=== PATIENT | male | born 1985 | race Caucasian/White ===

== ENCOUNTER 2017-09-01 00:25 | Inpatient (IN) | payer MEDICAID ==
--- NOTE | 2017-08-28 | NUR ---
SLEEPING COMFORTABLY. RESPIRATION EVEN AND UNLABORED.
[~2017-09-01] VITALS: Ht 170.2 cm; Wt 77.1 kg
--- NOTE | 2017-09-01 00:25 | NUR ---
Patient BIBA BLS accompanied by [place] [employer], transferred to bed 5. RN evaluating patient at bedside.
[2017-09-01 00:32] VITALS: BP 124/65
--- NOTE | 2017-09-01 00:33 | NUR ---
Dr. Dominguez evaluating patient at bedside.
--- NOTE | 2017-09-01 00:35 | NUR ---
[employer] [employer] FOR SUICIDAL IDEATION. FEELS LIKE PEOPLE ARE CHASING HIM WITH GUNS TO KILL HIM. PT WALKING WITHOUT CLOTHES IN THE STREET. PT A/OX3. PT RAMBLING AT TIMES WITH SPEECH, BELIEVES PEOPLE ARE OUT TO HURT HIM. PT STATES HE HAS SCHIZOPHRENIA AND HAS NOT TAKEN HIS MEDICATIONS. HR EVEN/REGULAR. BREATH SOUNDS CLEAR BILATERALLY. PT DENIES PAIN AT THIS TIME. RICARDA GOLDBERG PLACED PT ON 5150 HOLD. PT IS IN HOSPITAL GOWN AND BELONGINGS HAVE BEEN SENT PICKED UP BY SECURITY. RN/EMT SITTER FOR 5150. MED HX: SCHIZOPHRENIA/ANXIETY
[2017-09-01] MEDS ORDERED: QUET300T1 PO (00:37)
[2017-09-01] MEDS ORDERED: QUET400T PO (00:37)
[2017-09-01] MEDS ORDERED: LORazepam 1 MG TAB PO ONE (00:40)
[2017-09-01 01:02] LABS: ANION GAP 11.7 (8-16); CARBON DIOXIDE 27.8 mmol/L (21-32); CHLORIDE 105 mmol/L (98-107); CREATININE 1.2 mg/dL (0.7-1.3); GFR ARICAN-AMERICAN 89 mL/min (>90); GLUCOSE 120 mg/dL (74-106); POTASSIUM 3.5 mmol/L (3.5-5.1); RED BLOOD CELL COUNT(AUTO) 5.14 MIL/uL (4.20-6.10); SODIUM SERUM 141 mmol/L (136-145); UREA NITROGEN, BLOOD 17 mg/dL (7-18); WHITE BLOOD COUNT (AUTO) 8.9 K/uL (4.8-10.8)
[2017-09-01 01:03] LABS: HEMATOCRIT 46.9 % (36-52); HEMOGLOBIN 15.8 g/dL (12.0-18.0); LYMPHOCYTES % (AUTO) 25.1 % (20.5-51.1); MEAN CORPUSCULAR HEMOGLOBIN 31 pg (27-31); MEAN CORPUSCULAR HGB CONC 34 g/dL (33-37); MEAN CORPUSCULAR VOLUME 91.4 fL (80-94); MONOCYTES % (AUTO) 8.6 % (1.7-9.3); NEUTROPHILS % (AUTO) 60.4 % (42.2-75.2); PLATELET COUNT (AUTO) 239 K/uL (140-450); RED CELL DISTRIBUTION WIDTH 12.5 % (11.6-13.7)
[2017-09-01 01:04] LABS: BASOPHILS # (AUTO) 0.4 K/uL (0.00-0.22); BASOPHILS % (AUTO) 4.1 % (0.0-2.0); EOSINOPHILS # (AUTO) 0.2 K/uL (0-0.4); EOSINOPHILS % (AUTO) 1.8 % (0.0-4.0); LYMPHOCYTES # (AUTO) 2.2 K/uL (2.0-11.5); MONOCYTES # (AUTO) 0.8 K/uL (0.8-1.0); NEUTROPHILS # (AUTO) 5.3 K/uL (1.8-7.7)
[2017-09-01 01:16] LABS: ALBUMIN 4.3 g/dL (3.4-5.0); ASPARTATE AMINOTRANSFERASE 38 U/L (15-37); TOTAL BILIRUBIN 0.9 mg/dL (0.0-1.0)
[2017-09-01 01:17] LABS: ACETAMINOPHEN < 0.5 ug/ml (10-30); SALICYLATE < 2.8 mg/dL (2.8-20.0)
--- NOTE | 2017-09-01 01:29 | NUR ---
2 CUPS OF WATER GIVEN, PT UNABLE TO GIVE UA AT THIS TIME
--- NOTE | 2017-09-01 01:30 | NUR ---
Pt report given to NIR. Transfer of care at this time.
--- NOTE | 2017-09-01 01:31 | NUR ---
[facility] SECURITY AT BEDSIDE, ALL BELONGS SENT WITH SECURITY.
--- NOTE | 2017-09-01 02:23 | NUR ---
PT AGITATED AND UNWILLING TO GIVE URINE SAMPLE AFTER 8 CUPS OF WATER.
--- NOTE | 2017-09-01 02:25 | NUR ---
# 16 FR Urinary catheter inserted utilizing sterile technique. Immediate return of 200 ml YELLOW urine noted. Urine sample collected and sent to lab. Pt tolerated procedure WELL.
[2017-09-01 02:42] LABS: BARBITURATE, URINE NEG. ng/ml (NEG <=200); BENZODIAZEPINE, URINE NEG. ng/mL (NEG <=200); COCAINE, URINE NEG. ng/mL (NEG <=300); PHENCYCLIDINE SCREEN,URINE NEG. ng/mL (NEG <=25)
[2017-09-01 02:54] LABS: CANNABINOID, URINE POS. ng/mL (NEG <=50); OPIATE, URINE NEG. ng/mL (NEG <=2000)
--- NOTE | 2017-09-01 03:22 | NUR ---
PT SOUND ASLEEP AT THIS TIME. NO ACUTE DISTRESS NOTED.
--- NOTE | 2017-09-01 03:56 | NUR ---
Patient appears to be resting comfortably in bed. Respirations even and unlabored.
--- NOTE | 2017-09-01 05:00 | NUR ---
Patient appears to be resting comfortably in bed. Respirations even and unlabored.
--- NOTE | 2017-09-01 06:00 | NUR ---
Patient appears to be resting comfortably in bed. Vital Signs within normal limits. Respirations even and unlabored.
--- NOTE | 2017-09-01 06:16 | NUR ---
DR BATISTA FROM TELEPSYCH CALLED AND WAS UPDATED ON PATIENT'S STATUS. DR BATISTA TO CALL AND TALK TO PT AND WILL RETURN CALL TO ME.
--- NOTE | 2017-09-01 06:19 | NUR ---
DR BATISTA TALKING WITH PATIENT VIA TELEPSYCH.
--- NOTE | 2017-09-01 06:32 | NUR ---
TALKED WITH DR BATISTA AND HIS RECOMMENDATION IS TO HAVE PT REMAIN ON 5150 HOLD, DR BATISTA WILL WRITE FOR MEDICATION SEROQUEL AND GEODON.
[2017-09-01] MEDS ORDERED: QUEtiapine FUMARATE 100 MG TAB PO STA (06:37)
--- NOTE | 2017-09-01 06:43 | NUR ---
CALLED CHILD CAREGIVER YARY REGARDING SEROQUEL DOSE NEEDED FOR PT. NOT AVAILABLE IN ER [facility].
[2017-09-01] MEDS ORDERED: QUEtiapine FUMARATE 100 MG TAB ONE (06:56)
--- NOTE | 2017-09-01 07:04 | NUR ---
PT AWAKE AND TOOK PO MEDICATION WITHOUT PROBLEMS. PT APPROPRIATE WITH STAFF AT THIS TIME.
--- NOTE | 2017-09-01 07:06 | NUR ---
[facility]CEIV[facility] REQUEST FOR ASSISTANCE WITH PLACEMENT.
--- NOTE | 2017-09-01 07:30 | NUR ---
PT UP IN BED EATING BREAKFAST TRAY
--- NOTE | 2017-09-01 07:58 | NUR ---
PT ASLEEP IN BED WITH EVEN AND UNLABORED BREATHING
--- NOTE | 2017-09-01 09:20 | NUR ---
Packet faxed to [facility] for review/placement.
--- NOTE | 2017-09-01 09:57 | NUR ---
Contacted [facility], no beds available at this time.
--- NOTE | 2017-09-01 10:17 | NUR ---
DR. MCCALL IS AWARE OF DUPLICATE ORDER OF SEROQUEL AND 2ND MED NOT GIVEN. PT IS SLEEPING AND RESTING IN BED WITH EVEN AN UNLABORED BREATHING AT THIS TIME.
--- NOTE | 2017-09-01 10:29 | NUR ---
Placement packet has been sent to [facility].
--- NOTE | 2017-09-01 11:10 | NUR ---
Placement packet sent to [facility] for review
[2017-09-01] MEDS ORDERED: HYDROcodone/APAP 7.5/325 MG 1 TAB PO PRN (11:50)
[2017-09-01] MEDS ORDERED: ACETAMINOPHEN 325 MG TAB PO PRN (11:50)
[2017-09-01] MEDS ORDERED: ONDANSETRON 4 MG/2 ML VIAL IM/IVP PRN (11:50)
--- NOTE | 2017-09-01 12:49 | NUR ---
Patient will be admitted to care of DR MESA. Admited to MED SURG. Will go to room 110B. Belongings list completed. Report to YU CORDOBA.
--- NOTE | 2017-09-01 12:55 | NUR ---
RECEIVED BEDSIDE REPORT FROM ER NURSE. PATIENT IS AWAKE, ALERT AND ORIENTEDX4. PATIENT IS CURRENTLY UNCOOPERATIVE AND CUSSING ABOUT NOT KNOWING THAT HE WAS BEING TRANSFERRED TO [facility] FLOOR. PATIENT CAME IN WHEELCHAIR. HE AMBULATED TO BED, GAIT IS STEADY. HE WAS UPSET ABOUT ME CHECKING HIS VITALS AND DOING MRSA SWAB. HE GRABBED THE SWABS AND DID IT HIMSELF. PATIENT REFUSED IV AND REFUSED TO ANSWER ANY QUESTIONS. HE STATES HE JUST WANTS TO EAT BECAUSE HE IS REALLY HUNGRY, ORDERED HIM FOOD. 1:1 SITTER AT BEDSIDE. WILL CONTINUE TO MONITOR THE PATIENT.
[2017-09-01 13:00] VITALS: BP 111/60
[2017-09-01 13:22] LABS: CHOL/HDL RATIO 3.2 (1-4.5); MAGNESIUM 2.4 mg/dL (1.8-2.4); PHOSPHORUS 3.6 mg/dL (2.5-4.9); THYROID STIMULATING HORMONE 3.43 uIU/mL (0.34-3.74)
[2017-09-01] MEDS: NACL 0.9% 1,000 ML IV SCH ×2 (13:46→20:56)
--- NOTE | 2017-09-01 14:30 | NUR ---
PATIENT IS SLEEPING. NO SIGNS OF DISTRESS ON ROOM AIR. 1:1 SITTER AT BEDSIDE. WILL CONTINUE TO MONITOR THE PATIENT.
[2017-09-01 16:00] VITALS: BP 122/78
--- NOTE | 2017-09-01 16:00 | NUR ---
PATIENT IS SLEEPING, NO SIGNS OF DISTRESS. 1:1 SITTER AT BEDSIDE. WILL CONTINUE TO MONITOR THE PATIENT.
--- NOTE | 2017-09-01 17:35 | NUR ---
TALKED TO DR CONTRERAS ABOUT THE PATIENT. HE SAID HE WILL BE BACK LATER.
--- NOTE | 2017-09-01 19:05 | NUR ---
DR CONTRERAS IN TO SEE THE PATIENT. PATIENT NOT ANSWERING ANY QUESTIONS. HE STATES ALL WE DO IS BOTHER HIM. DR CONTRERAS CANNOT CLEAR HIM AT THIS TIME D/T PATIENT BEING UNCOOPERATIVE. GAVE BEDSIDE REPORT TO COTTON HEADER NURSE. PATIENT ENDORSED IN STABLE CONDITION
--- NOTE | 2017-09-01 19:06 | NUR ---
RECD. RESTING IN BED, JUST WOKE UP BUT TURNED HIS BACK FROM NURSE WHEN ASKED HOW HE IS. UPSET BECAUSE HE IS BOTHERED FROM SLEEP. RESPIRATION EVEN AND UNLABORED. TATTOOS NOTED ON BILATERAL UPPER EXTREMITIES AND RIGHT LEG. CONTINUED SLEEPING. NO APPEARANCE OF PAIN NOTED 0/10. WILL CONTINUE TO MONITOR BEING THE NURSE SITTER FOR THIS SHIFT.
--- NOTE | 2017-09-01 19:45 | NUR ---
Patient's Plan of Care was discussed and reviewed with ADULT MANAGER: ROB
[2017-09-01] MEDS ORDERED: QUEtiapine FUMARATE 100 MG TAB PO SCH ×2 (21:00)
--- NOTE | 2017-09-01 21:37 | NUR ---
WAKEN UP TO TAKE NIGHT MEDICATION. A/OX4. COOPERATIVE AT THIS TIME. WANTS IV INSERTION TOMORROW. DENIES HEARING VOICES OR SEEING THINGS BUT ADMITTED FEELING VERY DEPRESSED.
--- NOTE | 2017-09-01 22:30 | NUR ---
SOUNDLY ASLEEP IN BED, SNORING.
[2017-09-02] VITALS: BP 120/80
--- NOTE | 2017-09-02 03:26 | NUR ---
No update from contacted facilities at this time. will continue to look for placement throughout shift. will endorse to morning shift to continue looking for placement as well.
--- NOTE | 2017-09-02 05:30 | NUR ---
GETS UPSET WHEN WAKEN UP BY SLEEVE SEPARATOR BUT ALLOW TECH TO DRAW BLOOD FOR AM LAB TEST.
[2017-09-02] MEDS: NACL 0.9% 1,000 ML IV SCH ×2 (06:02→19:02)
[2017-09-02 06:21] LABS: T4 (THYROXINE) 6.8 ug/dL (4.5-12.0)
--- NOTE | 2017-09-02 06:30 | NUR ---
ABLE TO SLEPT WELL. CONDITION REMAIN STABLE. WILL ENDORSE TO AM NURSE FOR CONTINUITY OF CARE.
[2017-09-02 06:31] LABS: ANION GAP 7.5 (8-16); CARBON DIOXIDE 30.4 mmol/L (21-32); POTASSIUM 3.9 mmol/L (3.5-5.1)
--- NOTE | 2017-09-02 07:05 | NUR ---
ENDORSED TO AM NURSE FOR CONTINUITY OF CARE.
--- NOTE | 2017-09-02 07:10 | NUR ---
RECEIVED PT FROM HOSPITALITY SERVICES MANAGER NURSEBRIAN, PT IS ASLEEP LYING ON THE BED WITH SIDE RAILS ARE UP, SUICIDE PRECAUTION ENFORCED, 1:1 SITTER ON THE BEDSIDE. RESPIRATIONS EVEN. PT HAS NO IV LINE IN PLACE BECAUSE ACCORDING TO HOSPITALITY SERVICES MANAGER NURSE, PT REFUSED IV LINE INSERTION. NO SIGN OF DISTRESS NOTED AND WILL CONTINUE TO MONITOR.
[2017-09-02 07:38] LABS: HEMATOCRIT 46.6 % (36-52); HEMOGLOBIN 15.8 g/dL (12.0-18.0); MEAN CORPUSCULAR HEMOGLOBIN 31 pg (27-31); MEAN CORPUSCULAR HGB CONC 34 g/dL (33-37); MEAN CORPUSCULAR VOLUME 92.4 fL (80-94); NEUTROPHILS % (AUTO) 41.7 % (42.2-75.2); PLATELET COUNT (AUTO) 200 K/uL (140-450); RED BLOOD CELL COUNT(AUTO) 5.04 MIL/uL (4.20-6.10); RED CELL DISTRIBUTION WIDTH 12.7 % (11.6-13.7); WHITE BLOOD COUNT (AUTO) 6.3 K/uL (4.8-10.8)
[2017-09-02 07:39] LABS: BASOPHILS % (AUTO) 1.7 % (0.0-2.0); EOSINOPHILS % (AUTO) 4.6 % (0.0-4.0); LYMPHOCYTES % (AUTO) 44.7 % (20.5-51.1); MONOCYTES % (AUTO) 7.3 % (1.7-9.3)
[2017-09-02 08:00] VITALS: BP 133/82
--- NOTE | 2017-09-02 08:05 | NUR ---
PT IS AWAKE AND SEATED ON THE BED AND VITAL SIGNS TAKEN AND IS STABLE. NO SIGN OF DISTRESS NOTED AND WILL CONTINUE TO MONITOR. 1:1 SITTER ON THE BEDSIDE.
--- NOTE | 2017-09-02 08:20 | NUR ---
PATIENT HAS BEEN SCREENED AND CATEGORIZED LOW NUTRITION RISK. PATIENT WILL BE SEEN WITHIN 7 DAYS OF ADMISSION. 09/08/[address]
[2017-09-02] MEDS ORDERED: OXcarbazepine 150 MG TAB PO SCH (09:00)
--- NOTE | 2017-09-02 11:00 | NUR ---
INFORMED DR. VERDUGO ABOUT THE PT'S REFUSAL FOR IV LINE INSERTION. ACKNOWLEDGED AND SAID THAT IT IS FINE.
--- NOTE | 2017-09-02 11:53 | NUR ---
ACKNOWLEDGED AN ORDER FOR A SHOWER FOR THE PT.
[2017-09-02] MEDS: QUEtiapine FUMARATE 100 MG TAB PO SCH ×2 (12:06→20:33)
--- NOTE | 2017-09-02 12:08 | NUR ---
PT IS AWAKE AND HAVING HIS LUNCH.. MEDICATION GIVEN AND PT TOLERATED IT. 1:1 SITTER ON THE BEDSIDE AND PT VERBALIZED THAT HE FEELS GOOD BECAUSE HE WAS ABLE TO TAKE A SHOWER. NO SIGN OF DISTRESS NOTED ON THE PT AND WILL CONTINUE TO MONITOR.
--- NOTE | 2017-09-02 12:32 | NUR ---
ECHO IS BEING DONE TO THE PT NOW. PT IS AWAKE, LYING ON THE BED AND TALKING APPROPRIATELY TO THE ROLL SKINNER. NO SIGN OF DISTRESS NOTED ON THE PT. WILL CONTINUE TO MONITOR.
--- NOTE | 2017-09-02 12:48 | NUR ---
ECHO WAS FINISHED AND DONE NOW.
--- NOTE | 2017-09-02 13:01 | NUR ---
PT IS ASLEEP LYING ON THE BED, WITH SIDE RAILS UP AND 1:1 SITTER ON THE BEDSIDE. RESPIRATIONS EVEN AND NO SIGN OF DISTRESS NOTED. WILL CONTINUE TO MONITOR.
[2017-09-02 16:00] VITALS: BP 112/74
--- NOTE | 2017-09-02 16:40 | NUR ---
PT IS AWAKE AND LYING ON THE BED, VITAL SIGNS TAKEN AND IS STABLE. NO SIGN OF DISTRESS NOTED. 1:1 SITTER ON THE BEDSIDE. WILL CONTINUE TO MONITOR.
--- NOTE | 2017-09-02 17:00 | NUR ---
DR. GARCIA CAME TO THE PT'S ROOM AND ASSESSED THE PT. PT RESPONDING APPROPRIATELY TO THE MD. PT STILL MEET 5150 CRITERIA AND IS OK FOR DISCHARGED FOR A PSYCH FACILITY ONCE MEDICALLY CLEARED.
--- NOTE | 2017-09-02 19:20 | NUR ---
ENDORSED PT TO LABORATORY COORDINATOR NURSELAURA FOR CONTINUITY OF CARE. PT IS SLEEPING AND 1:1 SITTER ON THE BEDSIDE. AND IS STABLE AT THIS TIME.
--- NOTE | 2017-09-02 19:22 | NUR ---
RECEIVED PT FROM KALIN NICHOLAS REPORT GIVEN AT BED SIDE , PT IS 5150 HOLD , PT SLEEPING AT THIS TIME NOT SIGNS OF DANGEROUS ALL PAPER WORK PROTOCOL UPDATED INITIAL ASSESSMENT DONE
--- NOTE | 2017-09-02 19:23 | NUR ---
ROOM SAFE FOR PAT 5150 HOLD SITTER AT BED SIDE
[2017-09-02 20:00] VITALS: BP 107/74
--- NOTE | 2017-09-02 21:00 | NUR ---
PT AWAKE TAKEN HIS ORAL MEDIC WELL NOT DISTRESS NOTED HE DENIES ANY HALLUCINATIONS AT THIS TIME, 1:1 SITTER PT GETTING SLEEP
--- NOTE | 2017-09-02 22:11 | NUR ---
PT SLEEPING NOT SIGN OF DISTRESS NOTED 1:1 SITTER NOT SIGNS OF DISTRESS NOTED
--- NOTE | 2017-09-02 23:31 | NUR ---
PT COOPERATIVE DENIES ANY PIN , AT THIS TIME, DENIES ANY HALLUCINATIONS
--- NOTE | 2017-09-02 23:36 | NUR ---
PT DENIED ANY PAIN, GETTING SLEEP SITTER 1:1 NOT SIGNS OF DISTRESS NOTED
[2017-09-03] VITALS: BP 113/68
--- NOTE | 2017-09-03 00:26 | NUR ---
PT AMBULATES TO THE RESTROOM VOIDING WELL URINE SAMPLE TAKEN AND SENT TO LAB PT COME BACK TO SLEEP DENIES ANY PAIN OR DISOMFORT AT THIS TIME
[2017-09-03 01:05] LABS: APPEARANCE,URINE CLEAR (CLEAR); BILIRUBIN,URINE NEGATIVE (NEGATIVE); BLOOD, URINE NEGATIVE (NEGATIVE); COLOR,URINE YELLOW (YELLOW); LEUKOCYTE ESTERASE ,URINE NEGATIVE (NEGATIVE); NITRITE, URINE NEGATIVE (NEGATIVE); UGLUCOSE NEGATIVE (NEGATIVE)
--- NOTE | 2017-09-03 03:00 | NUR ---
PT HAS BEEN SLEEPING, NOT SIGNS OF DISTRESS NOTED PT DENIES ANY HALLUCINATION AT THIS TIME PT 6558 1:1 ANUJ
--- NOTE | 2017-09-03 05:31 | NUR ---
PT HAS BEEN COOPERATIVE WHEN HE IS AWAKE PT 9652 1:1 SITTER ON CLOSE MONITORING DENIES ANY SUICIDAL IDEATION AT THIS TIME NOT HALLUCINATION SLEEPING WELL AND PT HAS BEEN VOIDING WELL TOO
[2017-09-03 06:05] LABS: BASOPHILS # (AUTO) 0.1 K/uL (0.00-0.22); BASOPHILS % (AUTO) 0.7 % (0.0-2.0); EOSINOPHILS # (AUTO) 0.3 K/uL (0-0.4); HEMATOCRIT 46.3 % (36-52); HEMOGLOBIN 15.7 g/dL (12.0-18.0); LYMPHOCYTES # (AUTO) 3.6 K/uL (2.0-11.5); LYMPHOCYTES % (AUTO) 49.4 % (20.5-51.1); MEAN CORPUSCULAR HEMOGLOBIN 31 pg (27-31); MEAN CORPUSCULAR HGB CONC 34 g/dL (33-37); MEAN CORPUSCULAR VOLUME 92.2 fL (80-94); MONOCYTES # (AUTO) 0.5 K/uL (0.8-1.0); NEUTROPHILS # (AUTO) 2.9 K/uL (1.8-7.7); NEUTROPHILS % (AUTO) 38.9 % (42.2-75.2); PLATELET COUNT (AUTO) 208 K/uL (140-450); RED BLOOD CELL COUNT(AUTO) 5.02 MIL/uL (4.20-6.10); RED CELL DISTRIBUTION WIDTH 13.6 % (11.6-13.7); WHITE BLOOD COUNT (AUTO) 7.3 K/uL (4.8-10.8)
--- NOTE | 2017-09-03 06:17 | NUR ---
PT AWAKE COOPERATIVE TO FOLLOW DR ORDER NOT SIGNS OF DISTRESS NOTED, PT WILL BE ENDORSED TO DAY SHIFT FOR CONTINUITY OF CARE
[2017-09-03 06:41] LABS: ANION GAP 7.7 (8-16); CARBON DIOXIDE 26.8 mmol/L (21-32); POTASSIUM 3.5 mmol/L (3.5-5.1)
--- NOTE | 2017-09-03 07:20 | NUR ---
RECEIVED REPORT FROM GENERAL INTERN NURSE. PATIENT LYING DOWN IN BED SLEEPING, AROUSABLE BY VOICE. NO DISTRESS NOTED. DENIES ANY PAIN. AAOX3, CALM, COOPERATIVE, SKIN COLOR APPROPRIATE TO ETHNICITY, WARM TO TOUCH. SKIN IS INTACT. UNCLEAR ON WHETHER PATIENT CURRENTLY HAS THOUGHTS, WHEN ASKED, SAYS "I DON'T KNOW, I JUST WOKE UP". LUNGS CTA ON ALL LOBES. ABDOMEN SOFT, NON-DISTENDED. NO IV SITE IN PLACE PATIENT REFUSES. REVIEWED PLAN OF CARE WITH PATIENT. PATIENT VERBALIZED UNDERSTANDING. AWAITING FOR PSYCH FACILITY PLACEMENT. SAFETY MEASURES IN PLACE, 1:1 SITTER AT BEDSIDE. WILL CONTINUE TO MONITOR.
[2017-09-03 07:43] VITALS: BP 111/74
[2017-09-03] MEDS: QUEtiapine FUMARATE 100 MG TAB PO SCH ×2 (09:01→21:10)
--- NOTE | 2017-09-03 09:02 | NUR ---
PATIENT LYING DOWN IN BED SLEEPING, AROUSABLE BY VOICE. NO DISTRESS NOTED. DENIES ANY PAIN. SCHEDULED MEDICATIONS DUE GIVEN. SAFETY MEASURES IN PLACE, 1:1 SITTER AT BEDSIDE. WILL CONTINUE TO MONITOR.
--- NOTE | 2017-09-03 11:15 | NUR ---
PATIENT LYING IN BED SLEEPING, LYING DOWN. NO DISTRESS NOTED. DENIES ANY PAIN. ABLE TO AMBULATE TO BATHROOM AND TO BED WITH STEADY GAIT. CONDITION UNCHANGED. 1:1 SITTER AT BEDSIDE. WILL CONTINUE TO MONITOR.
--- NOTE | 2017-09-03 12:08 | NUR ---
[facility] aware patient is still in unit will continue to look for placement throughout the shift. will update unit when new information has been received.
--- NOTE | 2017-09-03 14:49 | NUR ---
PATIENT LYING DOWN, IN BED SLEEPING, AROUSABLE BY VOICE. NO DISTRESS NOTED. DENIES ANY PAIN. CONDITION UNCHANGED. SAFETY MEASURES IN PLACE, 1:1 SITTER AT BEDSIDE. WILL CONTINUE TO MONITOR.
[2017-09-03] MEDS: LORazepam 1 MG TAB PO PRN (15:55)
[2017-09-03 16:00] VITALS: BP 115/82
--- NOTE | 2017-09-03 16:00 | NUR ---
PATIENT AWAKE WALKING AROUND BEDSIDE, IN AGITATED MOOD DUE TO BEING HUNGRY AND NO SNACKS ALLOWED FOR 5150 PATIENT'S. ATIVAN GIVEN PER MD ORDERS TO HELP WITH ANXIETY. SAFETY MEASURES AT BEDSIDE, 1:1 SITTER AT BEDSIDE. WILL CONTINUE TO MONITOR.
--- NOTE | 2017-09-03 18:00 | NUR ---
PATIENT SITTING IN BED WITH DINNER TRAY IN FRONT. NO DISTRESS NOTED. DENIES ANY PAIN. CONDITION UNCHANGED. WILL CONTINUE TO MONITOR.
--- NOTE | 2017-09-03 19:15 | NUR ---
GAVE REPORT TO PLUMBING AND HEATING MECHANIC NURSE FOR CONTINUITY OF CARE. PATIENT IN STABLE CONDITION.
--- NOTE | 2017-09-03 19:16 | NUR ---
RECEIVED BEDSIDE REPORT FROM DAY SHIFT NURSE EDDIE RN, PT STABLE, NO DISTRESS NOTED, PT HAS NO IV ACCESS, PT ON ROOM AIR, NO SOB NOTED, PT SLEEPING, 1:1 SITTER AT BEDSIDE, INITIAL ASSESSMENT DONE, ALL SAFETY PRECAUTION MET, WILL CONTINUE TO MONITOR.
--- NOTE | 2017-09-03 21:10 | NUR ---
DUE MEDICATION ADMINISTERED , PT TOLERATED WELL, NO DISTRESS NOTED, CALL LIGHT WITHIN REACH, WILL CONTINUE TO MONITOR. Addendum: 09/03/17 at 2236 by Debbie Guajardo RN 1:1 SITTER AT BEDSIDE
--- NOTE | 2017-09-03 23:52 | NUR ---
CHECKED ON PT, PT SLEEPING, NO DISTRESS NOTED, 1:1 SITTER AT BEDSIDE, WILL CONTINUE TO MONITOR.
[2017-09-03 23:56] VITALS: BP 119/69
--- NOTE | 2017-09-04 02:11 | NUR ---
PT SLEEPING, NO DISTRESS NOTED, 1:1 SITTER AT BEDSIDE, WILL CONTINUE TO MONITOR.
--- NOTE | 2017-09-04 04:38 | NUR ---
PT SLEEPING, NO DISTRESS NOTED, 1:1 SITTER AT BEDSIDE, WILL CONTINUE TO MONITOR.
--- NOTE | 2017-09-04 07:00 | NUR ---
ASSUMED CONTINUITY OF CARE. NO SIGNS AND SYMPTOMS OF ACUTE DISTRESS NOTED. INITIAL ASSESSMENT DONE. CALM, QUIET AND COOPERATIVE. NO SUICIDAL THOUGHTS NOTICED. KEEP SURROUNDINGS SAFE. CLOSELY MONITRED 1:1.
--- NOTE | 2017-09-04 07:05 | NUR ---
Patient's Plan of Care was discussed and reviewed with MOTOR AND CONTROLS TESTER: Divina AGUILERA
--- NOTE | 2017-09-04 07:06 | NUR ---
ENDORSED PT TO DAY SHIFT NURSE CLOVER ZAMAN, PT IN STABLE CONDITION , NO DISTRESS NOTED, 1:1 SITTER AT BEDSIDE.
[2017-09-04 07:47] LABS: BASOPHILS # (AUTO) 0.1 K/uL (0.00-0.22); BASOPHILS % (AUTO) 0.8 % (0.0-2.0); EOSINOPHILS # (AUTO) 0.2 K/uL (0-0.4); EOSINOPHILS % (AUTO) 3.5 % (0.0-4.0); HEMATOCRIT 47.5 % (36-52); HEMOGLOBIN 16.4 g/dL (12.0-18.0); LYMPHOCYTES # (AUTO) 2.5 K/uL (2.0-11.5); MEAN CORPUSCULAR HEMOGLOBIN 32 pg (27-31); MEAN CORPUSCULAR HGB CONC 34 g/dL (33-37); MEAN CORPUSCULAR VOLUME 91.6 fL (80-94); MONOCYTES # (AUTO) 0.4 K/uL (0.8-1.0); MONOCYTES % (AUTO) 5.4 % (1.7-9.3); NEUTROPHILS # (AUTO) 3.8 K/uL (1.8-7.7); NEUTROPHILS % (AUTO) 54.3 % (42.2-75.2); PLATELET COUNT (AUTO) 211 K/uL (140-450); RED BLOOD CELL COUNT(AUTO) 5.18 MIL/uL (4.20-6.10); RED CELL DISTRIBUTION WIDTH 13.5 % (11.6-13.7); WHITE BLOOD COUNT (AUTO) 6.9 K/uL (4.8-10.8)
[2017-09-04 08:00] VITALS: BP 111/69
[2017-09-04 08:06] LABS: ANION GAP 10.2 (8-16); CARBON DIOXIDE 27.9 mmol/L (21-32); POTASSIUM 4.1 mmol/L (3.5-5.1)
[2017-09-04] MEDS: QUEtiapine FUMARATE 100 MG TAB PO SCH ×2 (08:42→21:11)
--- NOTE | 2017-09-04 08:42 | NUR ---
SUZY DUMONT CAME AND SPOKE TO PT. AT BEDSIDE. PT. CALM AND COOPERATIVE.
--- NOTE | 2017-09-04 11:00 | NUR ---
SLEEPING COMFORTABLY. NO DIFFICULTY BREATHING OBSERVED. CONTINUE MONITORING 1:1.
[2017-09-04 12:00] VITALS: BP 103/70
--- NOTE | 2017-09-04 15:00 | NUR ---
[facility] IS AWARE OF PATIENT AND ASSISTING WITH PLACEMENT. THERE ARE CURRENTLY NO BEDS AVAILABLE AT THIS TIME.
--- NOTE | 2017-09-04 16:02 | NUR ---
WENT TO BATHROOM. TOLERATED WELL. HAD STEADY GAIT AND BALANCE. NO C/O PAIN. CONTINUE TO MONITOR 1:1 FOR SUICIDAL PREVENTION.
[2017-09-04] MEDS: LORazepam 1 MG TAB PO PRN (16:27)
--- NOTE | 2017-09-04 19:06 | NUR ---
BEDSIDE REPORT GIVEN TO ELEONORA PATE. IN STABLE CONDITION.
--- NOTE | 2017-09-04 19:07 | NUR ---
RECEIVED BEDSIDE REPORT FROM DAY SHIFT NURSE CLOVER ZAMAN, PT IN STABLE CONDITION, NO DISTRESS NOTED, NO IV ACCESS, PT ON ROOM AIR, NO SOB, 1:1 SITTER AT BEDSIDE, INITIAL ASSESSMENT DONE, ALL SAFETY PRECAUTION MET, WILL CONTINUE TO MONITOR.
--- NOTE | 2017-09-04 21:11 | NUR ---
DUE MEDICATION ADMINISTERED, PT TOLERATED WELL, NO DISTRESS NOTED, CALL LIGHT WITHIN REACH, WILL CONTINUE TO MONITOR.
--- NOTE | 2017-09-04 23:52 | NUR ---
CHECKED ON PT, PT SLEEPING, NO DISTRESS NOTED, CHECKED PT V/S, WNL, 1:1 SITTER AT BEDSIDE, WILL CONTINUE TO MONITOR.
[2017-09-04 23:58] VITALS: BP 106/57
--- NOTE | 2017-09-05 02:11 | NUR ---
PT SLEEPING, NO DISTRESS NOTED 1:1 SITTER AT BEDSIDE, WILL CONTINUE TO MONITOR.
--- NOTE | 2017-09-05 03:58 | NUR ---
PT SLEEPING, NO DISTRESS NOTED, 1:1 SITTER AT BEDSIDE, WILL CONTINUE TO MONITOR.
[2017-09-05 06:34] LABS: BASOPHILS % (AUTO) 0.3 % (0.0-2.0); EOSINOPHILS # (AUTO) 0.2 K/uL (0-0.4); EOSINOPHILS % (AUTO) 2.1 % (0.0-4.0); HEMATOCRIT 46.4 % (36-52); LYMPHOCYTES # (AUTO) 2.8 K/uL (2.0-11.5); LYMPHOCYTES % (AUTO) 27.9 % (20.5-51.1); MEAN CORPUSCULAR HEMOGLOBIN 31 pg (27-31); MEAN CORPUSCULAR HGB CONC 34 g/dL (33-37); MEAN CORPUSCULAR VOLUME 91.3 fL (80-94); MONOCYTES # (AUTO) 0.6 K/uL (0.8-1.0); MONOCYTES % (AUTO) 5.8 % (1.7-9.3); NEUTROPHILS # (AUTO) 6.5 K/uL (1.8-7.7); NEUTROPHILS % (AUTO) 63.9 % (42.2-75.2); PLATELET COUNT (AUTO) 194 K/uL (140-450); RED BLOOD CELL COUNT(AUTO) 5.08 MIL/uL (4.20-6.10); RED CELL DISTRIBUTION WIDTH 13.2 % (11.6-13.7); WHITE BLOOD COUNT (AUTO) 10.1 K/uL (4.8-10.8)
--- NOTE | 2017-09-05 06:42 | NUR ---
CHECKED ON PT, PT SLEEPING, NO DISTRESS NOTED, 1:1 SITTER AT BEDSIDE, WILL CONTINUE TO MONITOR.
[2017-09-05 06:49] LABS: CARBON DIOXIDE 28.3 mmol/L (21-32); POTASSIUM 4.3 mmol/L (3.5-5.1)
--- NOTE | 2017-09-05 07:00 | NUR ---
ASSUMED CONTINUITY OF CARE. NO SIGNS AND SYMPTOMS OF ACUTE DISTRESS NOTICED. INITIAL ASSESSMENT DONE. SLEEPING WELL AT THIS TIME. KEEP SURROUNDINGS SAFE. CLOSELY MONITORED 1:1 FOR SUICIDAL PREVENTION.
--- NOTE | 2017-09-05 07:02 | NUR ---
ENDORSED PT TO DAY SHIFT NURSE CLOVER ZAMAN, PT IN STABLE CONDITION, 1:1 SITTER AT BEDSIDE.
--- NOTE | 2017-09-05 07:04 | NUR ---
Patient's Plan of Care was discussed and reviewed with LENS CLEANER: CLOVER FERNANDEZ
[2017-09-05 08:00] VITALS: BP 101/55
[2017-09-05] MEDS: QUEtiapine FUMARATE 100 MG TAB PO SCH ×2 (08:13→21:13)
--- NOTE | 2017-09-05 09:52 | NUR ---
SUZY DUMONT CAME AND SPOKE TO PT. AT BEDSIDE. CALM AND COOPERATIVE.
[2017-09-05 12:00] VITALS: BP 107/65
--- NOTE | 2017-09-05 12:00 | NUR ---
VITALS SIGNS STABLE. NO C/O PAIN. WILL MONITOR CLOSELY 1:1.
[2017-09-05] MEDS: LORazepam 1 MG TAB PO PRN (16:12)
--- NOTE | 2017-09-05 19:04 | NUR ---
BEDSIDE REPORT GIVEN TO ELEONORA PATE. IN STABLE CONDITION.
--- NOTE | 2017-09-05 19:05 | NUR ---
RECEIVED BEDSIDE REPORT FROM DAY SHIFT NURSE CLOVER ZAMAN, PT STABLE, NO DISTRESS NOTED, PT HAS NO IV ACCESS, PT ON ROOM AIR, NO SOB, 1:1 SITTER AT BEDSIDE, PT ABLE TO SELF AMBULATE TO AND FROM RESTROOM, INITIAL ASSESSMENT DONE, ALL SAFETY PRECAUTION MET, WILL CONTINUE TO MONITOR.
--- NOTE | 2017-09-05 21:13 | NUR ---
DUE MEDICATION ADMINISTERED, PT TOLERATED WELL, NO DISTRESS NOTED, 1;1 SITTER AT BEDSIDE, WILL CONTINUE TO MONITOR.
--- NOTE | 2017-09-05 23:22 | NUR ---
CHECKED ON PT, PT SLEEPING, NO DISTRESS NOTED, V/S TAKEN, WNL, 1:1 SITTER AT BEDSIDE, WILL CONTINUE TO MONITOR.
[2017-09-05 23:55] VITALS: BP 97/63
--- NOTE | 2017-09-06 03:17 | NUR ---
No placements found at this time ,giancarlo continue to make calls for placement
--- NOTE | 2017-09-06 04:45 | NUR ---
PT SLEEPING, NO DISTRESS NOTED, 1:1 SITTER AT BEDSIDE, WILL CONTINUE TO MONITOR.
[2017-09-06 06:59] LABS: BASOPHILS % (AUTO) 0.3 % (0.0-2.0); EOSINOPHILS # (AUTO) 0.2 K/uL (0-0.4); EOSINOPHILS % (AUTO) 1.7 % (0.0-4.0); HEMATOCRIT 46.4 % (36-52); HEMOGLOBIN 15.9 g/dL (12.0-18.0); LYMPHOCYTES # (AUTO) 2.4 K/uL (2.0-11.5); LYMPHOCYTES % (AUTO) 20.3 % (20.5-51.1); MEAN CORPUSCULAR HEMOGLOBIN 31 pg (27-31); MEAN CORPUSCULAR HGB CONC 34 g/dL (33-37); MEAN CORPUSCULAR VOLUME 90.8 fL (80-94); MONOCYTES # (AUTO) 0.8 K/uL (0.8-1.0); MONOCYTES % (AUTO) 6.7 % (1.7-9.3); NEUTROPHILS # (AUTO) 8.4 K/uL (1.8-7.7); PLATELET COUNT (AUTO) 188 K/uL (140-450); RED BLOOD CELL COUNT(AUTO) 5.11 MIL/uL (4.20-6.10); WHITE BLOOD COUNT (AUTO) 11.8 K/uL (4.8-10.8)
--- NOTE | 2017-09-06 07:20 | NUR ---
ENDORSED PT TO DAY SHIFT NURSE MUNA RN, PT IN STABLE CONDITION, NO DISTRESS NOTED, 1:1 SITTER AT BEDSIDE.
--- NOTE | 2017-09-06 07:25 | NUR ---
REPORT RECEIVED FROM SENIOR NATIONAL ACCOUNT MANAGER, PT SLEEPING QUIETLY IN NAD, RESP EVEN UNLABORED, SKIN WARM DRY COLOR WNL, PLAN OF CARE REVIEWED, NO IMMEDIATE NEEDS IDENTIFIED AT THIS TIME, 1:1 SITTER AT BEDSIDE, WILL CONTINUE TO MONITOR.
[2017-09-06 07:50] LABS: ANION GAP 15.6 (8-16); CARBON DIOXIDE 24.2 mmol/L (21-32); CREATININE 1.1 mg/dL (0.7-1.3); POTASSIUM 3.8 mmol/L (3.5-5.1)
[2017-09-06 08:00] VITALS: BP 102/57
[2017-09-06] MEDS: LORazepam 1 MG TAB PO PRN (08:55)
[2017-09-06] MEDS: QUEtiapine FUMARATE 100 MG TAB PO SCH (08:56)
--- NOTE | 2017-09-06 08:59 | NUR ---
AM MEDS AND ATIVAN GIVEN FOR ANXIETY, PT STATES HE FEELS ANXIOUS, SPEAKS WITH LOUD VOICE AND DEMANDING, WENT RIGHT BACK TO SLEEP AFTER MEDICATION, PT REMAINS WITH 1:1 SITTER, WILL CONTINUE TO MONITOR.
--- NOTE | 2017-09-06 10:35 | NUR ---
PT MOVED TO 109B, WALKS WITH STEADY GAIT.
--- NOTE | 2017-09-06 11:12 | NUR ---
[facility] aware patient is still in unit. will continue to look for placement throughout shift. will update unit when new information has been received.
--- NOTE | 2017-09-06 15:08 | NUR ---
DR MUNROE AT BEDSIDE FOR EVALUATION
[2017-09-06 16:00] VITALS: BP 108/60
--- NOTE | 2017-09-06 16:50 | NUR ---
PT MEDICATED WITH TYLENOL FOR PATEL, BP 169/101, WILL GIVEN PRN CLONIDINE Addendum: 09/06/17 at 1753 by Joanna Briones RN WRONG PATIENT, PLEASE DISREGARD ABOVE NOTE
--- NOTE | 2017-09-06 16:55 | NUR ---
PT UP AMBULATING IN ROOM, ANXIOUS TO GO HOME, PT WAS CLEARED FROM 5150 BY FEDER[facility] MADERA DISCHARGE ORDER.
--- NOTE | 2017-09-06 18:20 | NUR ---
DISCHARGE INSTRUCTION GIVEN AND EXPLAINED TO PT, PT VERBALIZED FULL UNDERSTANDING, OUT PT PSYCH FOLLOW UP RESOURCES GIVEN TO PT BY DR MUNROE, PT HAS HANDOUT IN HIS HAND, PT, BELONGINGS DELIVERED TO PT BY SECURITY, BUS PASS PROVIDED BY NURSING CORE DRILLER, PT AMBULATES WELL WITH STEADY GAIT, ESCORTED OUT TO FRONT LOBBY.
== END 2017-09-06 18:20 | disposition home or self-care (01) | DRG 812 ==
LOC: MED 00:25 → MTU 11:54
PROVIDERS: ADMIT Family Medicine; ATTEND Family Medicine
DX: T43.621A Poisoning by amphetamines, accidental (unintentional), initial encounter (principal); G92 Toxic encephalopathy; E87.1 Hypo-osmolality and hyponatremia; R45.851 Suicidal ideations; F20.9 Schizophrenia, unspecified; F41.9 Anxiety disorder, unspecified; F12.10 Cannabis abuse, uncomplicated; F15.10 Other stimulant abuse, uncomplicated; F17.210 Nicotine dependence, cigarettes, uncomplicated; F32.9 Major depressive disorder, single episode, unspecified; E78.5 Hyperlipidemia, unspecified; R74.0 Nonspecific elevation of levels of transaminase and lactic acid dehydrogenase [LDH]; F41.0 Panic disorder [episodic paroxysmal anxiety]; Y92.89 Other specified places as the place of occurrence of the external cause; Z91.14 Patient's other noncompliance with medication regimen; Z71.51 Drug abuse counseling and surveillance of drug abuser; Z79.899 Other long term (current) drug therapy
CPT/HCPCS: 36415; 71045; 80048; 80053; 80305; 81003; 83036; 83690; 83735; 83880; 84100; 84436; 84443; 84479; 85025; 85610; 87081; 93005; 99285; G0480; G0482; Q0092

== ENCOUNTER 2018-05-04 03:10 | Emergency (ER) | payer MEDICAID ==
[~2018-05-04] VITALS: Ht 170.2 cm; Wt 90.7 kg
[~2018-05-04 03:10] MED LIST: QUET300T1 PO; QUET400T PO
[2018-05-04 03:15] VITALS: BP 137/90
--- NOTE | 2018-05-04 03:15 | NUR ---
TO BED # 2 AMBULATORY , REPORT GIVEN TO KEISHA NICHOLAS
[2018-05-04] MEDS ORDERED: KETOROLAC 60 MG/2 ML VIAL IM ONE (03:20)
--- NOTE | 2018-05-04 03:34 | NUR ---
33/M PRESENTS TO ED, C/O 09/17 SHARP CONSTANT L UPPER MOLAR PAIN, X3 HRS. PT DENIES TRAUMA/INJURY, CP, SOB, N/V, FEVER. AOX4, RR EVEN AND UNLABORED. DENIES MED HX, RX OR OTC.
--- NOTE | 2018-05-04 03:37 | NUR ---
DR QUIÑONES AT BEDSIDE
[2018-05-04 03:48] VITALS: BP 136/90
== END 2018-05-04 03:48 | disposition home or self-care (01) ==
LOC: MED 03:10
DX: K08.89 Other specified disorders of teeth and supporting structures (principal); Z79.899 Other long term (current) drug therapy
CPT/HCPCS: 96372; 99283; J1885

== ENCOUNTER 2022-12-16 03:12 | Emergency (ER) | payer MEDICAID, OTHER ==
[~2022-12-16] VITALS: Ht 167.6 cm; Wt 81.6 kg
[2022-12-16 03:30] VITALS: BP 129/83; PULSE 113; RESP 19; TEMP 97.9; O2SAT 98
[2022-12-16] MEDS ORDERED: LORA-476 PO (03:56)
[2022-12-16 04:15] VITALS: BP 129/83; PULSE 113; RESP 19; TEMP 97.9; O2SAT 98
== END 2022-12-16 04:15 | disposition home or self-care (01) ==
LOC: MED 03:12
DX: F41.9 Anxiety disorder, unspecified (principal); Z76.0 Encounter for issue of repeat prescription; E11.9 Type 2 diabetes mellitus without complications; F17.210 Nicotine dependence, cigarettes, uncomplicated; Z71.6 Tobacco abuse counseling; Z79.899 Other long term (current) drug therapy
CPT/HCPCS: 99281

== ENCOUNTER 2023-06-13 09:42 | Emergency (ER) | payer OTHER ==
[~2023-06-13] VITALS: Ht 167.6 cm; Wt 80.7 kg
[~2023-06-13 09:42] MED LIST changes: +LORA-476 PO
[2023-06-13 10:18] VITALS: BP 133/83; PULSE 80; RESP 18; TEMP 97.7; O2SAT 100
== END 2023-06-13 10:27 | disposition left against medical advice (07) ==
LOC: MED 09:42
DX: R10.9 Unspecified abdominal pain (principal); R11.0 Nausea; R03.0 Elevated blood-pressure reading, without diagnosis of hypertension; E11.9 Type 2 diabetes mellitus without complications; Z79.899 Other long term (current) drug therapy
CPT/HCPCS: 99281